=== PATIENT | male | born 1955 | race Asian ===

== ENCOUNTER 2018-05-04 13:10 | Emergency (ER) | payer MEDICAID ==
[~2018-05-04] VITALS: Ht 162.6 cm; Wt 68.0 kg
[2018-05-04 13:10] VITALS: BP 121/78
--- NOTE | 2018-05-04 15:07 | NUR ---
MAURICIO ROSENTHAL AT BS AND PT NOTED REFUSED WOUND TREATMENT.
--- NOTE | 2018-05-04 16:30 | NUR ---
TRIED TO DO WOUND CARE AND UNABLE TO DO SO PT REFUSES, CURSES, SCRATCHES AND HITS STAFF.
--- NOTE | 2018-05-04 18:50 | NUR ---
CALLED [facility] MADE THEM AWARE THAT PT IS GOING BACK TO THEIR FACILITY. SPOKE TO NURSE FROM [facility].
--- NOTE | 2018-05-04 18:56 | NUR ---
REPORT GIVEN TO [facility] STAFF FOR TRANSPORT.
== END 2018-05-04 18:59 ==
LOC: ER 13:16
DX: Z46.6 Encounter for fitting and adjustment of urinary device (principal); F20.9 Schizophrenia, unspecified; K21.9 Gastro-esophageal reflux disease without esophagitis; G40.909 Epilepsy, unspecified, not intractable, without status epilepticus; G20 Parkinson's disease; G30.9 Alzheimer's disease, unspecified; F02.80 Dementia in other diseases classified elsewhere, unspecified severity, without behavioral disturbance, psychotic disturbance, mood disturbance, and anxiety; F17.200 Nicotine dependence, unspecified, uncomplicated
CPT/HCPCS: 99283; A4606; Z7610